=== PATIENT | male | born 1940 | race African-American/Black ===

== ENCOUNTER 2017-07-26 14:50 | Emergency (ER) | payer MEDICARE, MEDICAID ==
[~2017-07-26] VITALS: Ht 172.7 cm; Wt 83.0 kg
[~2017-07-26 14:50] MED LIST: ALPRAZOLAM0.25 MG ORAL; DYAZIDE1 CAP ORAL; IBUPROFEN600 MG ORAL; LISINOPRIL20 MG ORAL; NAMENDA10 MG ORAL; NIACIN100 MG ORAL; NORVASC5 MG ORAL; QUETIAPINE FUM100 MG ORAL; QUETIAPINE FUMA25 MG ORAL; UNOBMED
[2017-07-26 15:00] VITALS: BP 136/63
[2017-07-26 16:00] LABS: BASOPHILS % (AUTO) 1.5 % (0.0-2.0); EOSINOPHILS % (AUTO) 3.8 % (0.0-3.0); LYMPHOCYTES % (AUTO) 46.9 % (20.0-45.0); MEAN CORPUSCULAR HEMOGLOBIN 22.1 PG (27.0-31.0); MEAN CORPUSCULAR HGB CONC 29.9 G/DL (32.0-36.0); MEAN CORPUSCULAR VOLUME 74 FL (80-99); MEAN PLATELET VOLUME 8.5 FL (6.5-10.1); MONOCYTES % (AUTO) 6.7 % (1.0-10.0); PLATELET COUNT 294 K/UL (150-450); RED BLOOD COUNT 4.63 M/UL (4.70-6.10); RED CELL DISTRIBUTION WIDTH 15.1 % (11.6-14.8); WHITE BLOOD COUNT 7.6 K/UL (4.8-10.8)
--- NOTE | 2017-07-26 16:03 | Emergency Room Report ---
History of Present Illness General Chief Complaint: Gastrointestinal Bleed Source: Patient Present Illness HPI Patient presents with complaints of bright red blood per them patient reports that for the past 2 days he has noticed increased blood in the toilet He has not had this problem in the past Denies any chest pressures of breath denies any back or flank pain patient however does some increased general weakness Denies any exertional dyspnea Patient has not had a colonoscopy in the past Allergies: Coded Allergies: No Known Allergies (Verified Allergy, Unknown, 08/28/06) Patient History Past Medical History: see triage record Pertinent Family History: none Reviewed Nursing Documentation: PMH: Agreed, PSxH: Agreed Nursing Documentation-PMH Past Medical History: No History, Except For Hx Cardiac Problems: No Hx Hypertension: Yes Hx Pacemaker: No Hx Asthma: No Hx COPD: No Hx Diabetes: No Hx Cancer: No Hx Gastrointestinal Problems: No Hx Dialysis: No History Of Psychiatric Problem: No Hx Neurological Problems: No Hx Cerebrovascular Accident: No Hx Dementia: Yes Hx Seizures: No Review of Systems All Other Systems: negative except mentioned in HPI Physical Exam Vital Signs Date Time Temp Pulse Resp B/P (MAP) Pulse Ox O2 Delivery O2 Flow Rate FiO2 07/26/17 14:54 98.2 73 14 164/74 97 Room Air Sp02 EP Interpretation: reviewed, normal General Appearance: no apparent distress Head: normocephalic, atraumatic Eyes: bilateral eye PERRL, bilateral eye EOMI ENT: hearing grossly normal, normal pharynx, TMs + canals normal, uvula midline Neck: full range of motion, supple, no meningismus, no bony tend Respiratory: lungs clear, normal breath sounds, no rhonchi, no respiratory distress, no retraction, no accessory muscle use Cardiovascular #1: normal peripheral pulses, regular rate, rhythm, no edema, no gallop, no JVD, no murmur Gastrointestinal: normal bowel sounds, non tender, soft, no mass, no organomegaly, non-distended, no guarding, no hernia, no pulsatile mass, no rebound Rectal: other - Small external hemorrhoid no obvious active hemorrhage Genitourinary: no CVA tenderness Musculoskeletal: normal inspection Neurologic: oriented x3, responsive, tool design engineer III-XII nml as tested, motor strength/ tone normal, sensory intact Psychiatric: mood/affect normal Skin: normal color, no rash, warm/dry, palpation normal Lymphatic: normal inspection, no adenopathy Medical Decision Making Diagnostic Impression: Primary Impression: Gastrointestinal hemorrhage ER Course Given the patient's history examined presentation Given the age and risk factors lack of any other previous colonoscopy Patient has extensive blood work initiated Patient's hemoglobin is low however remains hemodynamically stable patient will require further inpatient GI consultation Secondary to insurance purposes requesting transfer Labs Test 07/26/17 15:17 07/26/17 15:42 White Blood Count 7.6 K/UL (4.8-10.8) Red Blood Count 4.63 M/UL (4.70-6.10) Hemoglobin 10.3 G/DL (14.2-18.0) Hematocrit 34.3 % (42.0-52.0) Mean Corpuscular Volume 74 FL (80-99) Mean Corpuscular Hemoglobin 22.1 PG (27.0-31.0) Mean Corpuscular Hemoglobin Concent 29.9 G/DL (32.0-36.0) Red Cell Distribution Width 15.1 % (11.6-14.8) Platelet Count 294 K/UL (150-450) Mean Platelet Volume 8.5 FL (6.5-10.1) Neutrophils (%) (Auto) 41.0 % (45.0-75.0) Lymphocytes (%) (Auto) 46.9 % (20.0-45.0) Monocytes (%) (Auto) 6.7 % (1.0-10.0) Eosinophils (%) (Auto) 3.8 % (0.0-3.0) Basophils (%) (Auto) 1.5 % (0.0-2.0) Prothrombin Time 10.2 SEC (9.30-11.50) Prothromb Time International Ratio 1.0 (0.9-1.1) Activated Partial Thromboplast Time 27 SEC (23-33) Sodium Level 143 MMOL/L (136-145) Potassium Level 3.7 MMOL/L (3.5-5.1) Chloride Level 107 MMOL/L (98-107) Carbon Dioxide Level 26 MMOL/L (21-32) Anion Gap 10 (5-15) Blood Urea Nitrogen 12 mg/dL (7-18) Creatinine 1.4 MG/DL (0.55-1.30) Estimat Glomerular Filtration Rate mL/min (>60) Glucose Level 107 MG/DL (74-106) Calcium Level 9.3 MG/DL (8.5-10.1) Total Bilirubin 0.2 MG/DL (0.2-1.0) Aspartate Amino Transf (AST/SGOT) 14 U/L (15-37) Alanine Aminotransferase (ALT/SGPT) 15 U/L (12-78) Alkaline Phosphatase 127 U/L (46-116) Total Creatine Kinase 184 U/L (26-308) Creatine Kinase MB 1.8 NG/ML (0.0-3.6) Creatine Kinase MB Relative Index 0.9 Troponin I 0.000 ng/mL (0.000-0.056) Total Protein 8.5 G/DL (6.4-8.2) Albumin 3.8 G/DL (3.4-5.0) Globulin 4.7 g/dL Albumin/Globulin Ratio 0.8 (1.0-2.7) Lipase 793 U/L (73-393) Urine Color Pale yellow Urine Appearance Clear Urine pH 6.5 (4.5-8.0) Urine Specific [place] 1.010 (1.005-1.035) Urine Protein Negative (NEGATIVE) Urine Glucose (UA) Negative (NEGATIVE) Urine Ketones Negative (NEGATIVE) Urine Occult Blood Negative (NEGATIVE) Urine Nitrite Negative (NEGATIVE) Urine Bilirubin Negative (NEGATIVE) Urine Urobilinogen Normal MG/DL (0.0-1.0) Urine Leukocyte Esterase 1+ (NEGATIVE) Urine RBC 0-2 /HPF (0 - 0) Urine WBC 0-2 /HPF (0 - 0) Urine Squamous Epithelial Cells Occasional /LPF Urine Bacteria Occasional /HPF (NONE) Rhythm Strip Diag. Results EP Interpretation: yes Rate: 77 Rhythm: NSR, no PVC's, no ectopy Chest X-Ray Diagnostic Results Chest X-Ray Diagnostic Results : Chest X-Ray Ordered: Yes # of Views/Limited/Complete: 1 View Indication: Chest Pain EP Interpretation: Yes Interpretation: no consolidation, no effusion, no pneumothorax Impression: No acute disease Electronically Signed by: John Jay DO Last Vital Signs Date Time Temp Pulse Resp B/P (MAP) Pulse Ox O2 Delivery O2 Flow Rate FiO2 07/26/17 14:54 98.2 73 14 164/74 97 Room Air Status: improved Disposition: XFER SHT-TRM HOSP Condition: Improved JOHN JAY D.O. Jul 26, 2017 16:03
--- NOTE | 2017-07-26 16:05 | Diagnostic Imaging Report ---
Indication: Chest pain Technique: One view of the chest Comparison: 05/30/2016 Findings: Lungs and pleural spaces are clear. Heart size is normal. No significant change Impression: No acute process
[2017-07-26 16:09] LABS: PROTHROMBIN TIME 10.2 SEC (9.30-11.50)
[2017-07-26 16:22] LABS: ALANINE AMINOTRANSFERASE 15 U/L (12-78); ALBUMIN/GLOBULIN RATIO 0.8 (1.0-2.7); ANION GAP 10 (5-15); ASPARTATE AMINO TRANSFERASE 14 U/L (15-37); CALCIUM 9.3 MG/DL (8.5-10.1); CARBON DIOXIDE 26 MMOL/L (21-32); CHLORIDE 107 MMOL/L (98-107); CKMB 1.8 NG/ML (0.0-3.6); CREATININE 1.4 MG/DL (0.55-1.30); LIPASE 793 U/L (73-393); POTASSIUM 3.7 MMOL/L (3.5-5.1); SODIUM 143 MMOL/L (136-145); TOTAL PROTEIN 8.5 G/DL (6.4-8.2)
[2017-07-26 16:28] LABS: APPEARANCE,URINE CLEAR; KETONES,URINE NEGATIVE (NEGATIVE); LEUKOCYTE ESTERASE ,URINE 1+ (NEGATIVE); NITRITE,URINE NEGATIVE (NEGATIVE); PH,URINE 6.5 (4.5-8.0); PROTEIN,URINE NEGATIVE (NEGATIVE); UROBILINOGEN,URINE NORMAL MG/DL (0.0-1.0)
[2017-07-26 16:36] LABS: RBC,URINE 0-2 /HPF (0 - 0)
[2017-07-26 16:37] LABS: BACTERIA,URINE OCCASIONAL /HPF; SQUAMOUS EPITHELIAL CELL,UR OCCASIONAL /LPF (NONE/OCC); WBC,URINE 0-2 /HPF (0 - 0)
[2017-07-26 17:00] VITALS: BP 144/59
[2017-07-26 19:27] VITALS: BP 107/89
[2017-07-26 20:17] VITALS: BP 107/89
--- NOTE | 2017-08-08 12:20 | Cardiology Report ---
APPROVED REPORT EKG Measurement Heart [id number] Normal sinus rhythm Normal ECG
== END 2017-07-26 20:33 | disposition short-term general hospital (02) ==
LOC: EMR 17:19
DX: K92.2 Gastrointestinal hemorrhage, unspecified (principal); I10 Essential (primary) hypertension; F03.90 Unspecified dementia, unspecified severity, without behavioral disturbance, psychotic disturbance, mood disturbance, and anxiety
CPT/HCPCS: 36415; 71010; 80053; 81003; 82550; 82553; 83690; 84484; 85025; 85610; 85730; 93005; 99285